=== PATIENT | male | born 1955 | race Caucasian/White ===

== ENCOUNTER 2017-11-03 12:31 | Day surgery (SDC) | payer BC ==
[2017-10-25 17:15] VITALS: BMI 25.8
[~2017-11-03 12:31] MED LIST: DEXAMETHASONE SOD PHOSPHATE 10 MG/ML 1 ML VIAL IV ONE; HEPARIN SODIUM,PORCINE 5,000 UNIT/ML 1 ML VIAL SQ ONE; LACTATED RINGERS 1,000 ML IV ONE; LIDOCAINE 1% 20 ML VIAL (10MG/ML) FOR IV START INTRADERMA PRN; ONDANSETRON 4 MG/2 ML VIAL IVP ONE; SCOPOLAMINE 1.5MG/72HR PATCH TRANSDERM ONE; ceFAZolin IN SWFI 2 GM/20 ML SYRINGE IVP ONE
[2017-11-03 13:19] VITALS: TEMP 97.2
--- NOTE | 2017-11-03 14:25 | P.GSHP ---
History of Present Illness H&P Date: 11/03/17 Chief Complaint: Recurrent left inguinal hernia This is a 62-year-old male who presents today for laparoscopic robotic-assisted repair of recurrent left inguinal hernia. Past Medical History Past Medical History: Hyperlipidemia Additional Past Medical History / Comment(s): Inguinal hernia, had an issue once with syncope, unsure if r/t hypoglycemia History of Any Multi-Drug Resistant Organisms: None Reported Past Surgical History: Hernia Repair, Tonsillectomy Additional Past Surgical History / Comment(s): benign cyst removed from forehead Past Anesthesia/Blood Transfusion Reactions: Previous Problems w/ Anesthesia Additional Past Anesthesia/Blood Transfusion Reaction / Comment(s): states "it doesn't take much to put me out" Smoking Status: Current every day smoker Medications and Allergies Home Medications Medication Instructions Recorded Confirmed Type Areds 1 tab PO DAILY 10/25/17 11/03/17 History Aspirin [Children's Aspirin] 81 mg PO DAILY 10/25/17 11/03/17 History Rosuvastatin Calcium [Crestor] 5 mg PO DAILY 10/25/17 11/03/17 History Allergies Allergy/AdvReac Type Severity Reaction Status Date / Time No Known Allergies Allergy Verified 11/03/17 13:21 Surgical - Exam Vital Signs Temp Pulse Resp BP Pulse Ox 97.2 F L 64 16 138/75 99 11/03/17 13:09 11/03/17 13:09 11/03/17 13:09 11/03/17 13:09 11/03/17 13:09 - General well developed, no distress - Eyes PERRL - ENT normal pinna - Neck no masses - Respiratory normal expansion - Cardiovascular Rhythm: regular - Abdomen Abdomen: soft Hernia: inguinal (Recurrent left inguinal hernia) Assessment and Plan Assessment: Recurrent left and inguinal hernia. We'll perform laparoscopic robotic- assisted repair.
[2017-11-03] MEDS ORDERED: fentaNYL (PF) 50 MCG/ML 2 ML AMP ONE (14:40)
[2017-11-03] MEDS ORDERED: ePHEDrine SULFATE/0.9% NACL/PF 50 MG/5 ML SYRINGE IV ONE (14:40)
[2017-11-03] MEDS ORDERED: SUCCINYLCHOLINE CHLORIDE 100 MG/5 ML SYR IV ONE (14:40)
[2017-11-03] MEDS ORDERED: ROCURONIUM BROMIDE 10 MG/ML 10 ML VIAL IV ONE (14:40)
[2017-11-03] MEDS ORDERED: LIDOCAINE 1% INJ 10MG/ML (20 ML MDV) ONE (14:40)
[2017-11-03] MEDS ORDERED: MIDAZOLAM 2 MG/2 ML VIAL ONE (14:40)
[2017-11-03] MEDS ORDERED: NEOSTIGMINE 1 MG/ML 10 ML VIAL ONE (14:40)
[2017-11-03] MEDS ORDERED: PROPOFOL 10 MG/ML 20 ML VIAL IV ONE (14:40)
[2017-11-03] MEDS ORDERED: GLYCOPYRROLATE 0.2 MG/ML 2 ML VIAL ONE (14:40)
[2017-11-03] MEDS ORDERED: BUPIVACAINE (PF) 0.25% 30 ML VIAL SQ ONE (15:04)
[2017-11-03] MEDS: HYDROmorphone 0.5 MG/0.5 ML SYRINGE IVP PRN ×2 (15:40→15:45)
[2017-11-03] MEDS ORDERED: KETOROLAC 30 MG/ML 1 ML VIAL IVP ONE (15:45)
[2017-11-03] MEDS ORDERED: diphenhydrAMINE 50 MG/ML 1 ML VIAL IVP ONE (15:47)
[2017-11-03 16:37] VITALS: RESP 16
[2017-11-03] MEDS ORDERED: HYDROcodone/APAP 7.5-325MG 1 EACH TAB PO ONE (17:00)
[2017-11-03 17:02] VITALS: BP 120/74; PULSE 77
--- NOTE | 2017-11-03 17:51 | P.OP ---
Date of Procedure: 11/03/17 Preoperative Diagnosis: Recurrent left inguinal hernia Postoperative Diagnosis: Recurrent left inguinal hernia Procedure(s) Performed: Laparoscopic robotic system repair of recurrent left inguinal hernia Anesthesia: MAGAN Surgeon: Brody Thorne Estimated Blood Loss (ml): 5 Pathology: none sent Condition: stable Disposition: PACU Description of Procedure: The patient's placed on the operating table in the supine position. The patient received general anesthesia. The patient's abdomen was prepped and draped in usual sterile fashion. The skin was anesthetized 1% local Xylocaine at the incision sites. Using an 11 blade a skin incision was made at the umbilicus. The fascia was grasped with a Arm[place] and then the peritoneal cavity was entered with the Veress needle. Position of the Veress needle was confirmed with a positive drop test. After adequate insufflation a 5 mm trocar was placed into the peritoneal cavity. The Laparoscope was placed the peritoneal cavity. And a robotic 8 mm trocar was placed in the right lateral position and then another 8 mm robotic trochars placed in the left lateral position. The original 5 mm trocar was exchanged for a 12 mm trocar. The patient was placed in reverse Trendelenburg and then the patient was docked to the robot. Next the peritoneum over top of the hernia was incised and then using blunt and sharp dissection and electrocautery the hernia sac was dissected free from the floor of the inguinal canal. The patient had a hernia in the direct space. The hernia sac was completely reduced into the peritoneal cavity. And then using the Pro regional vice president surgical sales mesh the hernia was repaired. The peritoneum was then sutured with 20V lock suture. The patient was then undocked the robot. The needle was withdrawn from the peritoneal cavity. The umbilical trocar site was closed with 0 Ethibond suture. The skin was closed interrupted 3-0 Monocryl suture. Dermabond dressing was applied. Patient was sent to recovery in stable condition.
== END 2017-11-03 17:55 | disposition home or self-care (01) ==
LOC: OR 12:31
PROVIDERS: ATTEND Surgery
DX: K40.91 Unilateral inguinal hernia, without obstruction or gangrene, recurrent (principal); E78.5 Hyperlipidemia, unspecified; F17.210 Nicotine dependence, cigarettes, uncomplicated; Z79.82 Long term (current) use of aspirin; Z79.899 Other long term (current) drug therapy
CPT/HCPCS: 49651; S2900

== ENCOUNTER → 2018-04-06 | Outpatient (CLI) | payer BC ==
--- NOTE | 2018-04-06 13:17 | CTL ---
EXAMINATION TYPE: CT Low Dose Lung DATE OF EXAM ORDERED: 04/06/2018 HISTORY: 62 year-old male history of tobacco use. Complains of chest congestion. Lung cancer screeni ng CT DLP: 116.[address] CTDI: 2.8 mGy Automated exposure control for dose reduction was used. SCREENING VISIT: Baseline COMPARISON: CT chest 07/08/2010 TECHNIQUE: Low dose computed tomography scan was performed through the chest at 1 mm thick sections a nd reconstructed images in the coronal and sagittal plane at 1 mm thick sections. Coronal MIP reconst ruction performed. CT DIAGNOSTIC QUALITY: Satisfactory FINDINGS: Heart is normal size without pericardial effusion. Aorta normal caliber with conventional arch vessel branching anatomy. No thoracic lymphadenopathy. Scattered small mediastinal lymph nodes are present. Evaluation lungs shows scattered mild centrilobular emphysema. No consolidation or pleural effusion. Some strandy atelectasis peripheral right lower lobe and basilar right middle lobe. No suspicious pul monary nodule or mass is identified. Small hiatal hernia. Noncontrast images of the upper abdomen show a fluid attenuating 2.6 cm hypodens e lesion anterior right kidney likely a cyst and has enlarged from 07/08/2010. Bones: Mild endplate spondylosis mid to lower thoracic spine. No osseous destructive process. IMPRESSION: 1. LungRADS 1 - Negative; no suspicious pulmonary nodules. 2. COPD with mild emphysema. 3. Small hiatal hernia. RECOMMENDATION: 1. Continue with annual lung cancer screening CT. 2. Smoking cessation. FOLLOW UP CT CHEST RECOMMENDATION: [address] LUNG RAD: Lung-Rad 1 Negative
== END | disposition home or self-care (01) ==
LOC: RADCTMAIN 12:05
PROVIDERS: ATTEND Family Medicine
DX: Z12.2 Encounter for screening for malignant neoplasm of respiratory organs (principal); J43.9 Emphysema, unspecified; Z87.891 Personal history of nicotine dependence

== ENCOUNTER → 2018-04-25 | Day surgery (SDC) | payer BC ==
[2018-04-19 11:54] VITALS: BMI 25.8
[~2018-04-25] MED LIST changes: -DEXAMETHASONE SOD PHOSPHATE 10 MG/ML 1 ML VIAL IV ONE; -HEPARIN SODIUM,PORCINE 5,000 UNIT/ML 1 ML VIAL SQ ONE; -LACTATED RINGERS 1,000 ML IV ONE; +LACTATED RINGERS 1,000 ML IV SCH; -LIDOCAINE 1% 20 ML VIAL (10MG/ML) FOR IV START INTRADERMA PRN; +LIDOCAINE 1% INJ 10MG/ML (20 ML MDV) ONE; -ONDANSETRON 4 MG/2 ML VIAL IVP ONE; +PROPOFOL 10 MG/ML 20 ML VIAL IV ONE; -SCOPOLAMINE 1.5MG/72HR PATCH TRANSDERM ONE; -ceFAZolin IN SWFI 2 GM/20 ML SYRINGE IVP ONE
[2018-04-25 10:40] VITALS: TEMP 97.3
--- NOTE | 2018-04-25 11:16 | P.GSHP ---
History of Present Illness H&P Date: 04/25/18 Chief Complaint: Screening colonoscopy This is a 62-year-old male referred from Dr. Mirian Lovell. Patient presents today for screening colonoscopy. She denies a significant GI complaints. Past Medical History Past Medical History: Hyperlipidemia Additional Past Medical History / Comment(s): Inguinal hernia, had an issue once with syncope, unsure if r/t hypoglycemia History of Any Multi-Drug Resistant Organisms: None Reported Past Surgical History: Hernia Repair, Tonsillectomy Additional Past Surgical History / Comment(s): benign cyst removed from forehead Past Anesthesia/Blood Transfusion Reactions: Previous Problems w/ Anesthesia Additional Past Anesthesia/Blood Transfusion Reaction / Comment(s): states "it doesn't take much to put me out" Smoking Status: Current every day smoker - Past Family History Father Family Medical History: Cancer Medications and Allergies Home Medications Medication Instructions Recorded Confirmed Type Rosuvastatin Calcium [Crestor] 5 mg PO DAILY 10/25/17 04/25/18 History Aspirin [Adult Low Dose Aspirin EC] 81 mg PO DAILY 04/19/18 04/25/18 History Allergies Allergy/AdvReac Type Severity Reaction Status Date / Time No Known Allergies Allergy Verified 04/25/18 10:34 Surgical - Exam Vital Signs Temp Pulse Resp BP Pulse Ox 97.3 F L 81 16 132/75 95 04/25/18 10:39 04/25/18 10:39 04/25/18 10:39 04/25/18 10:39 04/25/18 10:39 - General well developed, no distress - Eyes PERRL - ENT normal pinna - Neck no masses - Respiratory normal expansion - Cardiovascular Rhythm: regular - Abdomen Abdomen: soft, non tender Assessment and Plan Assessment: We will perform screening colonoscopy.
--- NOTE | 2018-04-25 11:28 | P.OP ---
Date of Procedure: 04/25/18 Preoperative Diagnosis: Screening colonoscopy Postoperative Diagnosis: Severe diverticulosis of sigmoid and left colon Proximal transverse and right colon not visualized secondary to tortuosity the bowel Procedure(s) Performed: Colonoscopy Anesthesia: MAC Surgeon: Brody Thorne Pathology: none sent Condition: stable Disposition: PACU Description of Procedure: The patient's placed on the endoscopy table in the lateral position. He received IV sedation. Digital rectal exam was performed which revealed no abnormalities. The possible colonoscope was then placed patient anus passed throughout the colon. The scope could not be passed into the proximal transverse colon secondary to tortuosity the valve and inability the patient to retain air. Several times made to maneuver the colonoscope however this wasn't possible. Scope was then withdrawn the distal transverse colon appeared normal. In the descending and; there is extensive diverticular changes. The scope was then brought back the rectum and this appeared normal. Scope was then withdrawn for patient. Patient was scheduled for a barium enema to evaluate the right colon.
[2018-04-25 12:03] VITALS: BP 112/74; PULSE 69; RESP 18
--- NOTE | 2018-04-25 18:39 | FL ---
EXAMINATION TYPE: FL barium enema DATE OF EXAM: 04/25/2018 CLINICAL HISTORY: 62-year-old male incomplete colonoscopy for routine screening. Diverticulosis. Coul d only visualize to the transverse colon on colonoscopy. TECHNIQUE: A double contrast barium enema study is performed. Total fluoroscopy time: 2 minutes 20 seconds. Total images: 55 COMPARISON: None. FINDINGS: Cardio Clinician view of the abdomen shows overall non-obstructive bowel gas pattern. There is moderate residual air throughout the colon. Extensive attempts were made to adequately fill the ascending colon. The degree of tortuosity of the transverse colon limited proximal passage of contrast. There is extensive diverticulosis of the sigmoid colon and mild diverticular change in the ascending colon. There is limited coating of the ascending colon and especially the cecum giving cobblestone ap pearance. Within this limitation, no evidence of any mass or polyp, obstructing or constricting lesion througho ut the colon. IMPRESSION: 1. Excessively tortuous transverse colon limiting the ability to adequately coat the ascending colon. 2. Extensive diverticulosis of the sigmoid colon and mild diverticular change of the ascending colon. 3. Within the exam limitations, no suspicious polyp or mass is identified.
== END ==
LOC: ORWHC2ENDO 10:03
PROVIDERS: ATTEND Surgery
DX: Z12.11 Encounter for screening for malignant neoplasm of colon (principal); K57.30 Diverticulosis of large intestine without perforation or abscess without bleeding; Q43.8 Other specified congenital malformations of intestine; E78.5 Hyperlipidemia, unspecified; Z79.82 Long term (current) use of aspirin; Z79.899 Other long term (current) drug therapy; F17.210 Nicotine dependence, cigarettes, uncomplicated
CPT/HCPCS: 74270; J2001; J2704; G0121; 45378

== ENCOUNTER → 2019-04-25 | Outpatient (CLI) | payer MEDICARE, BC ==
--- NOTE | 2019-04-25 13:55 | CTL ---
EXAMINATION TYPE: CT Low Dose Lung DATE OF EXAM ORDERED: 04/25/2019 HISTORY: 63-year-old male Personal history of tobacco abuse. Lung cancer screening CT DLP: 120.[address] CTDI: 2.9 mGy Automated exposure control for dose reduction was used. SCREENING VISIT: One-year follow-up COMPARISON: 04/06/2018 TECHNIQUE: Low dose computed tomography scan was performed through the chest at 1 mm thick sections a nd reconstructed images in the coronal and sagittal plane. Additional coronal MIP reconstructions gen erated. CT DIAGNOSTIC QUALITY: Satisfactory FINDINGS: Heart normal size without pericardial effusion. Aorta normal caliber with conventional arch vessel branching anatomy. No thoracic lymphadenopathy. Mild centrilobular emphysema. Mild diffuse bronchial wall thickening. No consolidation or pleural eff usion. There is strandy mucoid debris within the right bronchus intermedius. Strandy atelectasis/scar ring. Focal volume loss and consolidation medial right middle lobe redemonstrated but increased from 018. No suspicious pulmonary nodules seen. Tiny hiatal hernia. Visualized upper abdomen shows moderate stool burden. Bones: Right lateral fifth and sixth rib fractures are new from 04/06/2018 but seemed to have scleroti c margins suggesting subacute, probably chronic incompletely united fractures. IMPRESSION: 1. Lung-RADS 1 - negative; no suspicious pulmonary nodules. 2. COPD with mild emphysema. 3. Tiny hiatal hernia. 4. 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 Clinically correlate. RECOMMENDATION: 1. Continue annual low-dose lung cancer screening CT. 2. Smoking cessation. FOLLOW UP CT CHEST RECOMMENDATION: [address] LUNG RAD: Lung-Rad 1 Negative
== END | disposition home or self-care (01) ==
LOC: RADCTMAIN 12:05
PROVIDERS: ATTEND Physician Assistant
DX: Z12.2 Encounter for screening for malignant neoplasm of respiratory organs (principal); J43.9 Emphysema, unspecified; K44.9 Diaphragmatic hernia without obstruction or gangrene; F17.210 Nicotine dependence, cigarettes, uncomplicated; Z71.6 Tobacco abuse counseling

== ENCOUNTER → 2020-09-24 | Outpatient (CLI) | payer MEDICARE, BC | END | disposition home or self-care (01) | LOC: LABPAT 08:05 | PROVIDERS: ATTEND Student in an Organized Health Care Education/Training Program | DX: U07.1 COVID-19 (principal) ==

== ENCOUNTER → 2020-09-30 | Outpatient (CLI) | payer MEDICARE, BC ==
[2020-09-30 11:46] LABS: HCT 47.7 % (39.0-53.0); MCH 34.4 pg (25.0-35.0); MCHC 33.5 g/dL (31.0-37.0); MCV 102.8 fL (80.0-100.0); Macrocytosis Slight; Mean Platelet Volume 6.6; Platelet Count 227 k/uL (150-450); RBC 4.64 m/uL (4.30-5.90); RDW 12.9 % (11.5-15.5); WBC 10.9 k/uL (3.8-10.6)
== END | disposition home or self-care (01) ==
LOC: LABPAT 10:32
PROVIDERS: ATTEND Student in an Organized Health Care Education/Training Program
DX: Z01.818 Encounter for other preprocedural examination (principal); K43.9 Ventral hernia without obstruction or gangrene
CPT/HCPCS: 36415; 85027; 93005

== ENCOUNTER 2020-10-01 09:38 | Day surgery (SDC) | payer MEDICARE, BC ==
[2020-09-30 09:35] VITALS: BMI 26.6
[~2020-10-01 09:38] MED LIST changes: +DEXAMETHASONE SOD PHOSPHATE 4 MG/ML 1 ML VIAL IV ONE; +HEPARIN SODIUM,PORCINE 5,000 UNIT/ML 1 ML VIAL SQ PRN; +HYDROmorphone 0.5 MG/0.5 ML SYRINGE IVP PRN; +LIDOCAINE 1% (10MG/ML) FOR IV START INTRADERMA PRN; -LIDOCAINE 1% INJ 10MG/ML (20 ML MDV) ONE; +ONDANSETRON 4 MG/2 ML VIAL IVP ONE; -PROPOFOL 10 MG/ML 20 ML VIAL IV ONE
[2020-10-01] MEDS: MIDAZOLAM 2 MG/2 ML VIAL IV PRN ×2 (11:12→11:25)
[2020-10-01] MEDS ORDERED: ROCURONIUM 10 MG/ML (10 ML VIAL) IV ONE (11:54)
[2020-10-01] MEDS ORDERED: GLYCOPYRROLATE 0.2 MG/ML 2 ML VIAL ONE (11:54)
[2020-10-01] MEDS ORDERED: NEOSTIGMINE 1 MG/ML 10 ML VIAL ONE (11:54)
[2020-10-01] MEDS ORDERED: fentaNYL (PF) 50 MCG/ML 2 ML AMP ONE (11:54)
[2020-10-01] MEDS ORDERED: DEXAMETHASONE SOD PHOSPHATE 4 MG/ML 1 ML VIAL ONE (11:54)
[2020-10-01] MEDS ORDERED: LIDOCAINE 1% INJ 10MG/ML (20 ML MDV) ONE (11:54)
[2020-10-01] MEDS ORDERED: ePHEDrine SULFATE/0.9% NACL/PF 50 MG/5 ML SYRINGE IV ONE (11:54)
[2020-10-01] MEDS ORDERED: PROPOFOL 10 MG/ML 20 ML VIAL IV ONE (11:54)
[2020-10-01] MEDS ORDERED: MIDAZOLAM 2 MG/2 ML VIAL ONE (11:54)
[2020-10-01] MEDS ORDERED: SUCCINYLCHOLINE CHLORIDE 100 MG/5 ML SYR IV ONE (11:54)
[2020-10-01] MEDS ORDERED: ROPIVACAINE 5 MG/ML 30 ML VIAL ONE (11:54)
[2020-10-01] MEDS ORDERED: BUPIVACAINE (PF) 0.25% 30 ML VIAL SQ ONE ×2 (12:46)
[2020-10-01] MEDS ORDERED: LACTATED RINGERS 1,000 ML IV ONE (13:19)
[2020-10-01 13:50] VITALS: TEMP 97.5
--- NOTE | 2020-10-01 13:56 | P.ANPRN ---
Procedure Note - Anesthesia - Nerve Block Performed Right Transversus Abdominis Single Time Out Performed: Yes Date of Procedure: 10/01/20 Procedure Start Time: 11:11 Procedure Stop Time: :14 Location of Patient: PreOp Indication: Acute Post-Operative Pain, Requested by Surgeon Sedation Type: Sedate with meaningful contact maintained Preparation: Sterile Prep Position: Supine Needle Types: Pajunk Needle Gauge: 21 Ultrasound used to visualize needle placement: Yes Ultrasound used to observe medication spread: Yes Blood Aspirated: No Pain Paresthesia on Injection Noted: No Resistance on Injection: Normal Image Stored and Saved: Yes Events: Uneventful and Well Tolerated (ropi .5% 20cc plus dexamethasone 4mg)
[2020-10-01 13:57] VITALS: RESP 16
--- NOTE | 2020-10-01 13:57 | P.ANPRN ---
Procedure Note - Anesthesia - Nerve Block Performed Bilateral Rectus Abdominis Single Time Out Performed: Yes Date of Procedure: 10/01/20 Procedure Start Time: Procedure Stop Time: Location of Patient: PreOp Indication: Acute Post-Operative Pain, Requested by Surgeon Sedation Type: Sedate with meaningful contact maintained Preparation: Sterile Prep Position: Supine Needle Types: Pajunk Needle Gauge: 21 Ultrasound used to visualize needle placement: Yes Ultrasound used to observe medication spread: Yes Blood Aspirated: No Pain Paresthesia on Injection Noted: No Resistance on Injection: Normal Image Stored and Saved: Yes Events: Uneventful and Well Tolerated (ropi .5% 20cc bilaterally)
--- NOTE | 2020-10-01 14:15 | P.OP ---
Date of Procedure: 10/01/20 Preoperative Diagnosis: Right inguinal hernia Recurrent ventral incisional hernia Postoperative Diagnosis: Same Procedure(s) Performed: Robotic-assisted repair of right inguinal hernia with mesh along with repair of recurrent ventral incisional hernia Anesthesia: MAGAN Surgeon: Sai Bustos Estimated Blood Loss (ml): 5 Condition: stable Disposition: PACU Description of Procedure: Patient is brought operative suite remained in supine position when general endotracheal anesthesia per Department of anesthesia prepped and draped in usual sterile fashion timeout performed correct patient correct procedure correct site verified. A 2 cm linear incision was made just above the umbilicus carried down around the recurrent periumbilical hernia. The hernia was reduced and the port was placed under direct visualization the abdomen was insufflated. 28 mm ports were placed lateral to this. On either side. Attention was turned to the right groin where there was a large inguinal hernia noted. This was reduced the peritoneum was taken down to the pubis laterally and posteriorly to the psoas. The hernia was completely reduced. A pro superintendent marine oil terminal mesh was placed. The peritoneum was then reapproximated using 2-0 V lock suture. Attention was turned to the midline hernia and this was closed with 0 Vicryl in an interrupted fashion with the aid of a Cash suture passer. There was a second very small 1 cm defect noted just lateral to this. A separate incision was made and using a Jose Ardon this defect was closed with an 0 Vicryl in interrupted fashion. All ports removed under direct visualization and hemostasis was noted the abdomen was desufflated and skin was closed with 4-0 Monocryl simple interrupted subcuticular stitches followed by skin glue. Patient tolerated the procedure well no apparent complications Plan - Discharge Summary Discharge Rx Participant: Yes New Discharge Prescriptions: No Action Rosuvastatin Calcium [Crestor] 5 mg PO DAILY Naproxen Sodium [Aleve] 220 mg PO DAILY PRN PRN Reason: Pain Discharge Medication List Rosuvastatin Calcium [Crestor] 5 mg PO DAILY 10/25/17 [History] Naproxen Sodium [Aleve] 220 mg PO DAILY PRN 09/30/20 [History]
[2020-10-01 15:14] VITALS: BP 142/78; PULSE 71
== END 2020-10-01 15:46 | disposition home or self-care (01) ==
LOC: OR 09:38
PROVIDERS: ATTEND Student in an Organized Health Care Education/Training Program
DX: K40.90 Unilateral inguinal hernia, without obstruction or gangrene, not specified as recurrent (principal); K43.2 Incisional hernia without obstruction or gangrene; M19.90 Unspecified osteoarthritis, unspecified site; E78.00 Pure hypercholesterolemia, unspecified; Z80.0 Family history of malignant neoplasm of digestive organs; E78.5 Hyperlipidemia, unspecified; F17.210 Nicotine dependence, cigarettes, uncomplicated; Z98.890 Other specified postprocedural states; Z79.1 Long term (current) use of non-steroidal anti-inflammatories (NSAID); Z79.899 Other long term (current) drug therapy
CPT/HCPCS: 49650; 49656; S2900; 64488; 86850; 86900; 86901

== ENCOUNTER → 2021-06-12 | Outpatient (CLI) | payer MEDICARE, BC ==
--- NOTE | 2021-06-12 14:01 | ECHOS ---
STRESS ECHOCARDIOGRAM INDICATIONS: Abnormal EKG BASELINE HEART RATE: 69 BASELINE BLOOD PRESSURE: 149/91 MAXIMUM HEART RATE: 135 MAXIMUM BLOOD PRESSURE: 203/104 85% MPHR: 129 100% MPHR: 152 METS: 7.5 MAXIMUM STAGE REACHED: 2 TOTAL EXERCISE TIME: 6:19 CLINICAL INFORMATION: Baseline EKG revealed normal sinus rhythm without significant ST-T changes. Patient walked on a standard Edison protocol for 6 minutes 19 seconds, achieved a maximal heart rate of 135 beats per minute, which is more than 85% of predicted maximum. He developed fatigue and shortness of breath but did not have angina or arrhythmia. EKG did not reveal any ST-segment changes to indicate ischemia. By EKG criteria, this is a negative stress test with fair exercise capacity. Baseline echo images revealed normal wall motion wall and wall thickening of all segments. At peak exercise there was good augmentation of left ventricular wall motion and wall thickening of all segments, suggesting that there is no evidence of any stress-induced ischemia on this study. FINAL IMPRESSION: 1. Limited exercise capacity with a negative stress test by EKG criteria, with minor resting T-wave inversion on lead V2. 2. Normal stress echocardiogram without evidence of ischemia. MMODL / IJN: [id number] /
== END | disposition home or self-care (01) ==
LOC: RADNMMAIN 08:50
PROVIDERS: ATTEND Family Medicine
DX: R94.31 Abnormal electrocardiogram [ECG] [EKG] (principal)
CPT/HCPCS: 93351

== ENCOUNTER 2022-01-13 00:44 | Emergency (ER) | payer MEDICARE, BC ==
[2022-01-13] MEDS ORDERED: SODIUM CHLORIDE 0.9% 1,000 ML IV ONE ×2 (00:55)
[2022-01-13] MEDS ORDERED: SODIUM CHLORIDE 0.9% 1,000 ML IV STA ×2 (00:55→03:58)
--- NOTE | 2022-01-13 00:56 | ED ---
Altered Mental Status HPI - General Chief Complaint: Altered Mental Status Stated Complaint: poss stroke Time Seen by Provider: 01/13/22 00:46 Source: patient, EMS, RN notes reviewed, old records reviewed Limitations: no limitations - History of Present Illness Initial Comments: This is a 66-year-old male who presents with significant unresponsiveness. Family did a well check on patient because he didn't show up and play his normal games this morning. Patient currently found to be not responsive. Brought in by EMS. EMS provides history. Patient was found to be unresponsive. Unsure of any medical history. Patient remains able to respond the pain MD Complaint: altered mental status, confusion, decreased responsiveness, weakness -: unknown Severity: severe Consistency of Symptoms: getting worse Context: unknown Associated Symptoms: diaphoresis, malaise, weakness, foul smelling urine Treatments Prior to Arrival: oxygen - Related Data Home Medications Medication Instructions Recorded Confirmed Rosuvastatin Calcium [Crestor] 5 mg PO DAILY 10/25/17 10/01/20 Naproxen Sodium [Aleve] 220 mg PO DAILY PRN 09/30/20 10/01/20 Previous Rx's Medication Instructions Recorded Docusate [Colace] 100 mg PO DAILY #10 capsule 10/01/20 HYDROcodone/APAP 5-325MG [[place] 1 tab PO Q4HR PRN 3 Days #18 tab 10/01/20 5-325] Allergies Allergy/AdvReac Type Severity Reaction Status Date / Time No Known Allergies Allergy Verified 10/01/20 10:41 Review of Systems ROS Statement: Those systems with pertinent positive or pertinent negative responses have been documented in the HPI. ROS Other: All systems not noted in ROS Statement are negative. Past Medical History Past Medical History: Hypertension Additional Past Medical History / Comment(s): Inguinal hernia, had an issue once with syncope, unsure if r/t hypoglycemia History of Any Multi-Drug Resistant Organisms: None Reported Past Surgical History: Hernia Repair, Tonsillectomy Additional Past Surgical History / Comment(s): benign cyst removed from forehead Past Anesthesia/Blood Transfusion Reactions: Previous Problems w/ Anesthesia Additional Past Anesthesia/Blood Transfusion Reaction / Comment(s): states "it doesn't take much to put me out" Past Psychological History: No Psychological Hx Reported Smoking Status: Unknown if ever smoked Past Alcohol Use History: Occasional Past Drug Use History: Marijuana - Past Family History Father Family Medical History: Cancer General Exam Limitations: altered mental status, physical limitation General appearance: alert, anxious, lethargic, obtunded, in distress Head exam: Present: atraumatic, normocephalic, normal inspection Eye exam: Present: normal appearance, PERRL, EOMI. Absent: scleral icterus, conjunctival injection, periorbital swelling ENT exam: Present: normal exam, mucous membranes dry Neck exam: Present: normal inspection. Absent: tenderness, meningismus, lymphadenopathy Respiratory exam: Present: respiratory distress, rhonchi, accessory muscle use, decreased breath sounds (On the right), prolonged expiratory, other (Significant tachypnea). Absent: wheezes, rales, stridor Cardiovascular Exam: Present: normal rhythm, tachycardia, normal heart sounds. Absent: systolic murmur, diastolic murmur, rubs, gallop, clicks GI/Abdominal exam: Present: soft, normal bowel sounds. Absent: distended, tenderness, guarding, rebound, rigid Extremities exam: Present: normal inspection, full ROM, normal capillary refill. Absent: tenderness, pedal edema, joint swelling, calf tenderness Back exam: Present: normal inspection Neurological exam: Present: altered Psychiatric exam: Present: agitated Skin exam: Present: warm, dry (Diaphoretic at times), pallor, mottled. Absent: rash Course Vital Signs 01/13/22 01/13/22 01/13/22 00:45 02:11 03:00 Temperature 98.4 F Pulse Rate 107 H 120 H 105 H Respiratory 18 30 H 18 Rate Blood Pressure 179/129 177/134 204/122 O2 Sat by Pulse 94 L 94 L 94 L Oximetry 01/13/22 01/13/22 01/13/22 03:40 04:33 05:41 Temperature 100.4 F H Pulse Rate 98 113 H 102 H Respiratory 33 H 36 H 24 Rate Blood Pressure 197/122 210/113 101/63 O2 Sat by Pulse 95 95 98 Oximetry 01/13/22 01/13/22 06:00 06:43 Temperature 98.1 F Pulse Rate 98 99 Respiratory 24 18 Rate Blood Pressure 98/62 97/61 O2 Sat by Pulse 98 98 Oximetry Patient remains unresponsive Patient response to pain Patient is protecting airway - Reevaluation(s) Reevaluation #1: 01/13/22 01:01 Medical record is reviewed 01/13/22 03:17 Patient is noted to have positive rectal temperature, fever Will be started on IV antibiotics for altered mental status with fever Reevaluation #2: 01/13/22 03:38 Chose to forego doing lumbar puncture secondary to cerebral edema Patient given antibiotics, vancomycin, Rocephin as well as antiviral, acyclovir Reevaluation #3: 01/13/22 05:10 Patient has no improvement after observation period here in the emergency department, mental status has not improved, at times patient is becoming agitated and has pulled out his IV requiring repeat IV starts and repeat blood draws for coagulated blood which delayed CT scan of chest abdomen and pelvis Patient continuing to show no improvement in his mental status, patient intubated for his own safety, airway protection, as well as his work of breathing as he has been significantly tachypneic since arrival to the emergency department Reevaluation #4: 01/13/22 05:10 Spoke with patient's family regarding patient's condition, they are updated, questions answered on multiple occasions, getting irritated over the condition of their father - Consultations Consultation #1: Spoke with Andree Chavez regarding transfer, they accept Procedures - Intubation Sedative: Versed Paralytic: Succinylcholine Laryngoscope: Pete Size: 4 ET Tube Size: 8 ET Tube Uncuffed: No Tube Secured Location: teeth Tube Placement Confirmation: visualized tube passing through cords, equal breath sounds bilaterally, no breath sounds over epigastrium, confirmation by capnometry Patient Tolerated Procedure: well Intubation Complications: none Medical Decision Making - Medical Decision Making 66-year-old male to the ER for evaluation of unresponsiveness,he was found down of unknown downtime. On arrival to the ER and throughout ER stay patient remains slow to respond, and inappropriate, responding to pain. Patient had no improvement with multiple symptomatic therapy and resuscitation. Patient did have fever, was given fever control and started on broad-spectrum IV antibiotics and antiviral. Patient was intubated for safety and significant work of breathing. Due to computed tomography scan findings of cerebral edema patient will be transferred for higher level of care and further neurology evaluation. - Lab Data Result diagrams: 01/13/22 02:08 01/13/22 03:15 Lab Results 01/13/22 01/13/22 01/13/22 Range/Units 01:04 01:04 01:04 WBC (3.8-10.6) k/uL RBC (4.30-5.90) m/uL Hgb (13.0-17.5) gm/dL Hct (39.0-53.0) % MCV (80.0-100.0) fL MCH (25.0-35.0) pg MCHC (31.0-37.0) g/dL RDW (11.5-15.5) % Plt Count (150-450) k/uL MPV Neutrophils % (Manual) % Band Neuts % (Manual) % Lymphocytes % (Manual) % Monocytes % (Manual) % Neutrophils # (Manual) (1.3-7.7) k/uL Lymphocytes # (Manual) (1.0-4.8) k/uL Monocytes # (Manual) (0-1.0) k/uL Nucleated RBCs (0-0) /100 WBC Manual Slide Review Macrocytosis PT (9.0-12.0) sec INR (<1.2) APTT (22.0-30.0) sec Sample Site ABG pH (7.35-7.45) ABG pCO2 (35-45) mmHg ABG pO2 (83-108) mmHg ABG HCO3 (21-25) mmol/L ABG Total CO2 (19-24) mmol/L ABG O2 Saturation (94-97) % ABG Base Excess mmol/L Chai Test VBG pH 7.37 (7.31-7.41) VBG pCO2 26 L (37-51) mmHg VBG HCO3 15 L (24-28) mmol/L Carbon Monoxide, Quant 0.8 (<10.0) % FiO2 % Sodium (137-145) mmol/L Potassium (3.5-5.1) mmol/L Chloride (98-107) mmol/L Carbon Dioxide (22-30) mmol/L Anion Gap mmol/L BUN (9-20) mg/dL Creatinine (0.66-1.25) mg/dL Est GFR (CKD-EPI)AfAm (>60 ml/min/1.73 sqM) Est GFR (CKD-EPI)NonAf (>60 ml/min/1.73 sqM) Glucose (74-99) mg/dL POC Glucose (mg/dL) (75-99) mg/dL POC Glu [employer] Tech ID Calcium (8.4-10.2) mg/dL Phosphorus (2.5-4.5) mg/dL Magnesium (1.6-2.3) mg/dL Total Bilirubin (0.2-1.3) mg/dL AST (17-59) U/L ALT (4-49) U/L Alkaline Phosphatase (38-126) U/L Ammonia <9 (<30) umol/L Lactate Dehydrogenase (313-618) U/L Creatine Kinase (55-170) U/L Troponin I (0.000-0.034) ng/mL C-Reactive Protein (<1.0) mg/dL Total Protein (6.3-8.2) g/dL Albumin (3.5-5.0) g/dL TSH (0.465-4.680) mIU/L Urine Color Urine Appearance (Clear) Urine pH (5.0-8.0) Ur Specific [place] (1.001-1.035) Urine Protein (Negative) Urine Glucose (UA) (Negative) Urine Ketones (Negative) Urine Blood (Negative) Urine Nitrite (Negative) Urine Bilirubin (Negative) Urine Urobilinogen (<2.0) mg/dL Ur Leukocyte Esterase (Negative) Urine RBC (0-5) /hpf Urine WBC (0-5) /hpf Ur Squamous Epith Cells (0-4) /hpf Urine Mucus (None) /hpf Salicylates mg/dL Urine Opiates Screen (NotDetected) Ur Oxycodone Screen (NotDetected) Urine Methadone Screen (NotDetected) Ur Propoxyphene Screen (NotDetected) Acetaminophen ug/mL Ur Barbiturates Screen (NotDetected) U Tricyclic Antidepress (NotDetected) Ur Phencyclidine Scrn (NotDetected) Ur Amphetamines Screen (NotDetected) U Methamphetamines Scrn (NotDetected) U Benzodiazepines Scrn (NotDetected) Urine Cocaine Screen (NotDetected) U Marijuana (THC) Screen (NotDetected) Serum Alcohol mg/dL Acetone, Qual (Negative) 01/13/22 01/13/22 01/13/22 Range/Units 02:08 02:38 03:07 WBC 12.0 H (3.8-10.6) k/uL RBC 5.12 (4.30-5.90) m/uL Hgb 17.7 H (13.0-17.5) gm/dL Hct 52.2 (39.0-53.0) % MCV 102.1 H (80.0-100.0) fL MCH 34.6 (25.0-35.0) pg MCHC 33.9 (31.0-37.0) g/dL RDW 13.8 (11.5-15.5) % Plt Count 40 L (150-450) k/uL MPV 9.3 Neutrophils % (Manual) 87 % Band Neuts % (Manual) 10 % Lymphocytes % (Manual) 2 % Monocytes % (Manual) 1 % Neutrophils # (Manual) 11.60 H (1.3-7.7) k/uL Lymphocytes # (Manual) 0.24 L (1.0-4.8) k/uL Monocytes # (Manual) 0.12 (0-1.0) k/uL Nucleated RBCs 0 (0-0) /100 WBC Manual Slide Review Performed Macrocytosis Slight PT 10.9 (9.0-12.0) sec INR 1.0 (<1.2) APTT 25.6 (22.0-30.0) sec Sample Site ABG pH (7.35-7.45) ABG pCO2 (35-45) mmHg ABG pO2 (83-108) mmHg ABG HCO3 (21-25) mmol/L ABG Total CO2 (19-24) mmol/L ABG O2 Saturation (94-97) % ABG Base Excess mmol/L Chai Test VBG pH (7.31-7.41) VBG pCO2 (37-51) mmHg VBG HCO3 (24-28) mmol/L Carbon Monoxide, Quant (<10.0) % FiO2 % Sodium (137-145) mmol/L Potassium (3.5-5.1) mmol/L Chloride (98-107) mmol/L Carbon Dioxide (22-30) mmol/L Anion Gap mmol/L BUN (9-20) mg/dL Creatinine (0.66-1.25) mg/dL Est GFR (CKD-EPI)AfAm (>60 ml/min/1.73 sqM) Est GFR (CKD-EPI)NonAf (>60 ml/min/1.73 sqM) Glucose (74-99) mg/dL POC Glucose (mg/dL) (75-99) mg/dL POC Glu [employer] Tech ID Calcium (8.4-10.2) mg/dL Phosphorus (2.5-4.5) mg/dL Magnesium (1.6-2.3) mg/dL Total Bilirubin (0.2-1.3) mg/dL AST (17-59) U/L ALT (4-49) U/L Alkaline Phosphatase (38-126) U/L Ammonia (<30) umol/L Lactate Dehydrogenase (313-618) U/L Creatine Kinase (55-170) U/L Troponin I (0.000-0.034) ng/mL C-Reactive Protein (<1.0) mg/dL Total Protein (6.3-8.2) g/dL Albumin (3.5-5.0) g/dL TSH (0.465-4.680) mIU/L Urine Color Yellow Urine Appearance Clear (Clear) Urine pH 5.5 (5.0-8.0) Ur Specific [place] 1.025 (1.001-1.035) Urine Protein 1+ H (Negative) Urine Glucose (UA) Negative (Negative) Urine Ketones 1+ H (Negative) Urine Blood Small H (Negative) Urine Nitrite Negative (Negative) Urine Bilirubin Negative (Negative) Urine Urobilinogen <2.0 (<2.0) mg/dL Ur Leukocyte Esterase Negative (Negative) Urine RBC 2 (0-5) /hpf Urine WBC 1 (0-5) /hpf Ur Squamous Epith Cells <1 (0-4) /hpf Urine Mucus Rare H (None) /hpf Salicylates mg/dL Urine Opiates Screen Not Detected (NotDetected) Ur Oxycodone Screen Not Detected (NotDetected) Urine Methadone Screen Not Detected (NotDetected) Ur Propoxyphene Screen Not Detected (NotDetected) Acetaminophen ug/mL Ur Barbiturates Screen Not Detected (NotDetected) U Tricyclic Antidepress Not Detected (NotDetected) Ur Phencyclidine Scrn Not Detected (NotDetected) Ur Amphetamines Screen Not Detected (NotDetected) U Methamphetamines Scrn Not Detected (NotDetected) U Benzodiazepines Scrn Not Detected (NotDetected) Urine Cocaine Screen Not Detected (NotDetected) U Marijuana (THC) Screen Detected H (NotDetected) Serum Alcohol mg/dL Acetone, Qual (Negative) 01/13/22 01/13/22 01/13/22 Range/Units 03:15 03:15 03:15 WBC (3.8-10.6) k/uL RBC (4.30-5.90) m/uL Hgb (13.0-17.5) gm/dL Hct (39.0-53.0) % MCV (80.0-100.0) fL MCH (25.0-35.0) pg MCHC (31.0-37.0) g/dL RDW (11.5-15.5) % Plt Count (150-450) k/uL MPV Neutrophils % (Manual) % Band Neuts % (Manual) % Lymphocytes % (Manual) % Monocytes % (Manual) % Neutrophils # (Manual) (1.3-7.7) k/uL Lymphocytes # (Manual) (1.0-4.8) k/uL Monocytes # (Manual) (0-1.0) k/uL Nucleated RBCs (0-0) /100 WBC Manual Slide Review Macrocytosis PT (9.0-12.0) sec INR (<1.2) APTT (22.0-30.0) sec Sample Site ABG pH (7.35-7.45) ABG pCO2 (35-45) mmHg ABG pO2 (83-108) mmHg ABG HCO3 (21-25) mmol/L ABG Total CO2 (19-24) mmol/L ABG O2 Saturation (94-97) % ABG Base Excess mmol/L Chai Test VBG pH (7.31-7.41) VBG pCO2 (37-51) mmHg VBG HCO3 (24-28) mmol/L Carbon Monoxide, Quant (<10.0) % FiO2 % Sodium 139 (137-145) mmol/L Potassium 4.6 (3.5-5.1) mmol/L Chloride 110 H (98-107) mmol/L Carbon Dioxide 21 L (22-30) mmol/L Anion Gap 8 mmol/L BUN 52 H (9-20) mg/dL Creatinine 1.47 H (0.66-1.25) mg/dL Est GFR (CKD-EPI)AfAm 56 (>60 ml/min/1.73 sqM) Est GFR (CKD-EPI)NonAf 48 (>60 ml/min/1.73 sqM) Glucose 115 H (74-99) mg/dL POC Glucose (mg/dL) 107 H (75-99) mg/dL POC Glu [employer] Tech Jignesh Alonso Calcium 7.7 L (8.4-10.2) mg/dL Phosphorus 3.1 (2.5-4.5) mg/dL Magnesium 2.0 (1.6-2.3) mg/dL Total Bilirubin 1.4 H (0.2-1.3) mg/dL AST 596 H (17-59) U/L ALT 335 H (4-49) U/L Alkaline Phosphatase 81 (38-126) U/L Ammonia (<30) umol/L Lactate Dehydrogenase 2544 H (313-618) U/L Creatine Kinase 111 (55-170) U/L Troponin I 0.296 H* (0.000-0.034) ng/mL C-Reactive Protein 35.4 H (<1.0) mg/dL Total Protein 6.9 (6.3-8.2) g/dL Albumin 2.7 L (3.5-5.0) g/dL TSH 1.230 (0.465-4.680) mIU/L Urine Color Urine Appearance (Clear) Urine pH (5.0-8.0) Ur Specific [place] (1.001-1.035) Urine Protein (Negative) Urine Glucose (UA) (Negative) Urine Ketones (Negative) Urine Blood (Negative) Urine Nitrite (Negative) Urine Bilirubin (Negative) Urine Urobilinogen (<2.0) mg/dL Ur Leukocyte Esterase (Negative) Urine RBC (0-5) /hpf Urine WBC (0-5) /hpf Ur Squamous Epith Cells (0-4) /hpf Urine Mucus (None) /hpf Salicylates <1.0 mg/dL Urine Opiates Screen (NotDetected) Ur Oxycodone Screen (NotDetected) Urine Methadone Screen (NotDetected) Ur Propoxyphene Screen (NotDetected) Acetaminophen 11.7 ug/mL Ur Barbiturates Screen (NotDetected) U Tricyclic Antidepress (NotDetected) Ur Phencyclidine Scrn (NotDetected) Ur Amphetamines Screen (NotDetected) U Methamphetamines Scrn (NotDetected) U Benzodiazepines Scrn (NotDetected) Urine Cocaine Screen (NotDetected) U Marijuana (THC) Screen (NotDetected) Serum Alcohol <10 mg/dL Acetone, Qual Negative (Negative) 01/13/22 Range/Units 05:35 WBC (3.8-10.6) k/uL RBC (4.30-5.90) m/uL Hgb (13.0-17.5) gm/dL Hct (39.0-53.0) % MCV (80.0-100.0) fL MCH (25.0-35.0) pg MCHC (31.0-37.0) g/dL RDW (11.5-15.5) % Plt Count (150-450) k/uL MPV Neutrophils % (Manual) % Band Neuts % (Manual) % Lymphocytes % (Manual) % Monocytes % (Manual) % Neutrophils # (Manual) (1.3-7.7) k/uL Lymphocytes # (Manual) (1.0-4.8) k/uL Monocytes # (Manual) (0-1.0) k/uL Nucleated RBCs (0-0) /100 WBC Manual Slide Review Macrocytosis PT (9.0-12.0) sec INR (<1.2) APTT (22.0-30.0) sec Sample Site Right Radial ABG pH 7.25 L (7.35-7.45) ABG pCO2 44 (35-45) mmHg ABG pO2 268 H (83-108) mmHg ABG HCO3 19 L (21-25) mmol/L ABG Total CO2 21 (19-24) mmol/L ABG O2 Saturation 99.2 H (94-97) % ABG Base Excess -8.1 mmol/L Chai Test Yes VBG pH (7.31-7.41) VBG pCO2 (37-51) mmHg VBG HCO3 (24-28) mmol/L Carbon Monoxide, Quant (<10.0) % FiO2 100 % Sodium (137-145) mmol/L Potassium (3.5-5.1) mmol/L Chloride (98-107) mmol/L Carbon Dioxide (22-30) mmol/L Anion Gap mmol/L BUN (9-20) mg/dL Creatinine (0.66-1.25) mg/dL Est GFR (CKD-EPI)AfAm (>60 ml/min/1.73 sqM) Est GFR (CKD-EPI)NonAf (>60 ml/min/1.73 sqM) Glucose (74-99) mg/dL POC Glucose (mg/dL) (75-99) mg/dL POC Glu Business Services Tech ID Calcium (8.4-10.2) mg/dL Phosphorus (2.5-4.5) mg/dL Magnesium (1.6-2.3) mg/dL Total Bilirubin (0.2-1.3) mg/dL AST (17-59) U/L ALT (4-49) U/L Alkaline Phosphatase (38-126) U/L Ammonia (<30) umol/L Lactate Dehydrogenase (313-618) U/L Creatine Kinase (55-170) U/L Troponin I (0.000-0.034) ng/mL C-Reactive Protein (<1.0) mg/dL Total Protein (6.3-8.2) g/dL Albumin (3.5-5.0) g/dL TSH (0.465-4.680) mIU/L Urine Color Urine Appearance (Clear) Urine pH (5.0-8.0) Ur Specific Emmons (1.001-1.035) Urine Protein (Negative) Urine Glucose (UA) (Negative) Urine Ketones (Negative) Urine Blood (Negative) Urine Nitrite (Negative) Urine Bilirubin (Negative) Urine Urobilinogen (<2.0) mg/dL Ur Leukocyte Esterase (Negative) Urine RBC (0-5) /hpf Urine WBC (0-5) /hpf Ur Squamous Epith Cells (0-4) /hpf Urine Mucus (None) /hpf Salicylates mg/dL Urine Opiates Screen (NotDetected) Ur Oxycodone Screen (NotDetected) Urine Methadone Screen (NotDetected) Ur Propoxyphene Screen (NotDetected) Acetaminophen ug/mL Ur Barbiturates Screen (NotDetected) U Tricyclic Antidepress (NotDetected) Ur Phencyclidine Scrn (NotDetected) Ur Amphetamines Screen (NotDetected) U Methamphetamines Scrn (NotDetected) U Benzodiazepines Scrn (NotDetected) Urine Cocaine Screen (NotDetected) U Marijuana (THC) Screen (NotDetected) Serum Alcohol mg/dL Acetone, Qual (Negative) - EKG Data -: EKG Interpreted by Me (EKG is sinus tachycardia 105 GA 135 QRS 105 QTC 393) Rate: normal (Repeat EKG is sinus tachycardia 105 GA 159 QRS 109 QTc 402) - Radiology Data Radiology results: report reviewed (Chest x-ray shows right elevated hemidiaphragm possible paralysis, CT brain does show cerebral edema,), image reviewed Critical Care Time Critical Care Time: Yes Total Critical Care Time: 95 Disposition Clinical Impression: Altered mental status, Cerebral edema, Delirium due to general medical condition, Hypertensive encephalopathy, Hypertension, Fever, Transaminitis, Diaphragm paralysis, Sepsis, Elevated troponin, Urinary retention, Thrombocytopenia Disposition: OTHER INSTITUTION NOT DEFINED Condition: Critical Is patient prescribed a controlled substance at d/c from ED?: No Referrals: Marilyn Childers NPC [Nurse Practitioner] - 1-2 days - Out of Hospital Transfer - Req. Specs Out of Hospital Transfer - [facility]
[2022-01-13 01:20] LABS: VBG PH 7.37 (7.31-7.41)
--- NOTE | 2022-01-13 01:38 | CT ---
EXAMINATION TYPE: CT brain wo con DATE OF EXAM: 01/13/2022 COMPARISON: 07/08/2010 HISTORY: AMS CT DLP: 1125.4 mGycm Automated exposure control for dose reduction was used. There is some loss of the sulci pattern compared to previous exam. Mild cerebral atrophy is expected but not demonstrated. There is also relatively dense basilar artery and [place] of [place]. This could relate to slow flow. No evidence of intracranial hemorrhage. IMPRESSION: There is possible developing cerebral edema which is a change compared to old exam.: This exam was discussed with emergency room staff at 1:30 AM.
--- NOTE | 2022-01-13 01:39 | XR ---
EXAMINATION TYPE: XR chest 1V portable DATE OF EXAM: 01/13/2022 COMPARISON: 07/08/2010 HISTORY: Altered mental status TECHNIQUE: Single view FINDINGS: Right diaphragm is elevated. There is no heart failure. Heart size is normal. IMPRESSION: Elevated right diaphragm is a change compared to last exam and could related to paralysis . No heart failure seen.
[2022-01-13] MEDS ORDERED: LORazepam 2 MG/ML INJ IV STA (02:20)
[2022-01-13] MEDS ORDERED: levETIRAcetam IV 1,500 MG in SALINE 1 100ML.BAG IVPB ONE (02:30)
[2022-01-13] MEDS ORDERED: IBUPROFEN IV 800 MG in SODIUM CHLORIDE 0.9% 250 ML IV ONE (02:30)
[2022-01-13] MEDS ORDERED: ACETAMINOPHEN IV (For NPO) 1,000 MG in EMPTY BAG 1 BAG IVPB ONE (02:30)
[2022-01-13 02:53] LABS: HCT 52.2 % (39.0-53.0); HGB 17.7 gm/dL (13.0-17.5); MCH 34.6 pg (25.0-35.0); MCHC 33.9 g/dL (31.0-37.0); MCV 102.1 fL (80.0-100.0); Macrocytosis Slight; Mean Platelet Volume 9.3; RBC 5.12 m/uL (4.30-5.90); RDW 13.8 % (11.5-15.5)
[2022-01-13 03:07] LABS: Appearance,Urine Clear (Clear); Bilirubin,Urine Negative (Negative); Blood,Urine Small (Negative); Color,Urine Yellow; Glucose,Urine (UA) Negative (Negative); Ketones,Urine 1+ (Negative); Leukocyte Esterase,Urine Negative (Negative); Mucus,Urine Rare /hpf; Nitrite,Urine Negative (Negative); PH, Urine 5.5 (5.0-8.0); Protein,Urine 1+ (Negative); RBC,Urine 2 /hpf (0-5); Specific Gravity,Urine 1.025 (1.001-1.035); Squamous Epithelial Cell,Urine <1 /hpf (0-4); Urobilinogen,Urine <2.0 mg/dL (<2.0); WBC,Urine 1 /hpf (0-5)
[2022-01-13 03:08] LABS: Partial Thromboplastin Time 25.6 sec (22.0-30.0); Prothrombin Time 10.9 sec (9.0-12.0)
[2022-01-13 03:17] LABS: Glucose,Whole Blood 107 mg/dL (75-99)
[2022-01-13 03:17] LABS: Amphetamine Screen,Urine Not Detected (NotDetected); Barbiturate Screen,Urine Not Detected (NotDetected); Benzodiazepines Screen,Urine Not Detected (NotDetected); Cocaine Screen,Urine Not Detected (NotDetected); Methadone Screen, Urine Not Detected (NotDetected); Opiate Screen,Urine Not Detected (NotDetected); Oxycodone Screen, Urine Not Detected (NotDetected); Phencyclidine Screen,Urine Not Detected (NotDetected); Tricyclic Antidepressant,Urine Not Detected (NotDetected); Urn Cannabinoid Scrn Detected (NotDetected)
[2022-01-13 03:25] LABS: Platelet Count 40 k/uL (150-450)
[2022-01-13 03:30] LABS: Band Neutrophils % 10 %; Lymphocytes # (M) 0.24 k/uL (1.0-4.8); Monocytes # (M) 0.12 k/uL (0-1.0); Neutrophils % (M) 87 %; Nucleated Red Blood Cells 0 /100 WBC (0-0); Total Cells Counted 100
[2022-01-13] MEDS ORDERED: HYDROmorphone 1 MG/ML 1 ML SYRINGE IVP STA (03:49)
[2022-01-13] MEDS ORDERED: VANCOMYCIN IV PER PHARMACY 1 EACH MISC MISCELLANE PRN (03:57)
[2022-01-13 04:13] LABS: ALT 335 U/L (4-49); Acetaminophen 11.7 ug/mL; Alcohol <10 mg/dL; Calcium 7.7 mg/dL (8.4-10.2); Creatine Kinase 111 U/L (55-170); Potassium 4.6 mmol/L (3.5-5.1); Salicylate <1.0 mg/dL; Sodium 139 mmol/L (137-145)
[2022-01-13 04:14] LABS: AST 596 U/L (17-59); African American GFR (CKD) 56 (>60 ml/min/1.73 sqM); Albumin 2.7 g/dL (3.5-5.0); Alkaline Phosphatase 81 U/L (38-126); Anion Gap 8 mmol/L; Blood Urea Nitrogen 52 mg/dL (9-20); Carbon Dioxide 21 mmol/L (22-30); Chloride 110 mmol/L (98-107); Glucose 115 mg/dL (74-99); Non-African American GFR(CKD) 48 (>60 ml/min/1.73 sqM); Phosphorus 3.1 mg/dL (2.5-4.5); Total Bilirubin 1.4 mg/dL (0.2-1.3); Total Protein 6.9 g/dL (6.3-8.2)
[2022-01-13 04:48] LABS: LDH 2544 U/L (313-618)
[2022-01-13] MEDS ORDERED: VANCOMYCIN 1,500 MG in SODIUM CHLORIDE 0.9% 250 ML IVPB ONE (05:00)
[2022-01-13] MEDS ORDERED: MIDAZOLAM 1 MG/ML 5 ML VIAL IV STA (05:04)
[2022-01-13] MEDS ORDERED: SUCCINYLCHOLINE CHLORIDE VIAL 200 MG/10 ML VIAL IV STA (05:04)
--- NOTE | 2022-01-13 05:09 | CT ---
EXAMINATION TYPE: CT ChestAbdPelvis w con DATE OF EXAM: 01/13/2022 COMPARISON: Chest CT scan 07/08/2010 HISTORY: Pt. is a poor historian who comes in [facility]. no known allergies, hx: of HTN and hernia surgery . CT DLP: 1284.6 mGycm Automated exposure control for dose reduction was used. CONTRAST: Performed with IV Contrast, patient injected with 80ml mL of Isovue 300. Images obtained from the thoracic inlet to the floor the pelvis with IV contrast. There is some patchy airspace infiltrate or atelectasis right lower lobe. There is small right pleura l effusion. There is no mediastinal adenopathy. Thoracic aorta is intact. No aneurysm. There are no h ilar masses. There is elevated right diaphragm. Liver is intact. Gallbladder is intact. There is no evidence of pancreatic mass. Stomach is intact. T here is no evidence of splenic mass. There is no adrenal mass. There are bilateral renal cortical cysts up to 4 cm. No hydronephrosis. Del ayed images show normal renal excretion. There is no retroperitoneal adenopathy. Ureters are not dila tonie. There is mild bilateral perinephric fat stranding likely related to previous episode of inflamma tion or obstruction. There is Carrera catheter in the urinary bladder. There are multiple sigmoid diver ticula. No diverticulitis. No evidence of inguinal hernia. No free fluid in the pelvis. The appendix is posterior and appears normal. The thoracic and lumbar vertebrae have normal alignment. Posterior elements are intact. Sternum is in tact. Shoulder joints are intact. The pelvic ring is intact. Hip joints are intact. IMPRESSION: Elevated right diaphragm with right basilar infiltrate and atelectasis. 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 Small right pleural effusion. No suspicious pulmonary mass. Thoracic abnormalities appear n ew compared to the old exam. No definite acute abnormality within the abdomen and pelvis. Colonic diverticulosis without diverticulitis.
[2022-01-13 05:23] LABS: C Reactive Protein 35.4 mg/dL (<1.0)
[2022-01-13] MEDS: PROPOFOL 10 MG/ML 20 ML VIAL IV ONE ×2 (05:27→05:45)
[2022-01-13 05:38] LABS: ABG Base Excess -8.1 mmol/L; ABG HCO3 19 mmol/L (21-25); ABG Oxygen Saturation 99.2 % (94-97); ABG PCO2 44 mmHg (35-45); ABG PH 7.25 (7.35-7.45); ABG PO2 268 mmHg (83-108); ABG TCO2 21 mmol/L (19-24); Allen Test Performed? Yes
[2022-01-13] MEDS ORDERED: ACYCLOVIR SODIUM IV ONE (05:45)
[2022-01-13] MEDS ORDERED: SODIUM CHLORIDE 0.9% IV ONE (05:45)
[2022-01-13 06:45] VITALS: BP 97/61; PULSE 99; RESP 18; TEMP 98.1
== END 2022-01-13 06:45 | disposition other institution (70) ==
LOC: EC 00:44
DX: A41.9 Sepsis, unspecified organism (principal); G93.6 Cerebral edema; F05 Delirium due to known physiological condition; I67.4 Hypertensive encephalopathy; I10 Essential (primary) hypertension; D69.6 Thrombocytopenia, unspecified; J98.6 Disorders of diaphragm; R74.01 Elevation of levels of liver transaminase levels; R33.9 Retention of urine, unspecified; F12.90 Cannabis use, unspecified, uncomplicated; Z79.899 Other long term (current) drug therapy
CPT/HCPCS: 99291 ×2; 99292 ×2; 31500 ×2; 96365 ×2; 96367; 96375 ×7; 96368; 36415; 36600; 94002; 93005; 80053; 84443; 82140; 82375; 82550; 82805; 82803; 82009; 83615; 83735; 84100; 84484; 85025; 85610; 85730; 86140; 81001; 87040; 80306; 80143; 87077; 87186; 80179; 71045; 70450; 71260; 74177; G0480; J3370; J0330; J2060; J0133; J0696; J2250; J1170; J0131; J1741; J2704; J1953; Q9967; 80320